=== PATIENT | male | born 1990 | race Native Hawaiian/Other Pacific Islander ===

== ENCOUNTER 2022-10-16 11:28 | Emergency (ER) | payer OTHER ==
[~2022-10-16] VITALS: Ht 182.9 cm; Wt 68.0 kg
[2022-10-16 12:20] VITALS: BP 164/97; TEMP 97.8
== END 2022-10-16 12:25 | disposition home or self-care (01) ==
LOC: ED 11:28
DX: T21.22XA Burn of second degree of abdominal wall, initial encounter (principal); T31.0 Burns involving less than 10% of body surface; X12.XXXA Contact with other hot fluids, initial encounter
CPT/HCPCS: 99282; J1885